=== PATIENT | male | born 1960 | race Caucasian/White ===

== ENCOUNTER 2019-11-25 08:59 | Emergency (ER) | payer OTHER ==
[~2019-11-25] VITALS: Ht 185.4 cm; Wt 88.5 kg
[2019-11-25] MEDS ORDERED: MIRTAZAPINE30 MG PO (09:15)
[2019-11-25] MEDS ORDERED: TESSALON PERLE100 MG PO (09:58)
[2019-11-25] MEDS ORDERED: MECLIZINE HCL12.5 MG PO (09:58)
== END 2019-11-25 10:10 | disposition home or self-care (01) ==
LOC: ED 08:59
DX: J06.9 Acute upper respiratory infection, unspecified (principal); Z91.013 Allergy to seafood; Z79.899 Other long term (current) drug therapy
CPT/HCPCS: 99283

== ENCOUNTER 2021-07-21 14:59 | Emergency (ER) | payer OTHER ==
[~2021-07-21] VITALS: Ht 185.4 cm; Wt 88.5 kg
[~2021-07-21 14:59] MED LIST: MECLIZINE HCL12.5 MG PO; MIRTAZAPINE30 MG PO; TESSALON PERLE100 MG PO
[2021-07-21] MEDS ORDERED: SERTRALINE HCL50 MG PO (15:13)
[2021-07-21] MEDS ORDERED: TRAZODONE HCL50 MG PO (17:45)
== END 2021-07-21 17:55 | disposition home or self-care (01) ==
LOC: ED 14:59
DX: F32.9 Major depressive disorder, single episode, unspecified (principal); Z20.822 Contact with and (suspected) exposure to COVID-19; Z91.013 Allergy to seafood; Z79.899 Other long term (current) drug therapy
CPT/HCPCS: 80053; 81001; 84443; 85025; 99285; G0480; U0003